=== PATIENT | female | born 1960 | race Caucasian/White ===

== ENCOUNTER → 2019-02-18 | Outpatient (CLI) | payer MEDICAID ==
--- NOTE | 2019-02-18 09:30 | Diagnostic Imaging Report ---
PROCEDURE: CT abdomen and pelvis without contrast. TECHNIQUE: Multiple contiguous axial images were obtained through the abdomen and pelvis without the use of intravenous contrast. Auto Exposure Controls were utilized during the CT exam to meet ALARA standards for radiation dose reduction. INDICATION: Left upper quadrant abdominal pain and early satiety. FINDINGS: Unenhanced images of the abdomen and pelvis reveal no focal hepatic or splenic abnormality. Gallbladder is surgically absent. Note is made of small amount of pericardial fluid and/or thickening. Stomach is nondistended. There is no evidence of pancreatic or adrenal gland lesion. Unenhanced images of the kidneys are also unremarkable without evidence of hydronephrosis. There is mild aortoiliac atherosclerotic calcification. No free fluid is seen within the abdomen or pelvis. Note is made of mesh in the anterior abdominal wall with mild protrusion of mesh and omentum at the level of the umbilicus. There is no evidence of bowel herniation. There is low-density in the terminal ileum which may be related to lipomatous change. The bladder is largely decompressed but otherwise unremarkable. There is mild diffuse lumbar spondylosis. IMPRESSION: No acute abnormality is identified. Note is made of mild pericardial fluid or thickening, mild abdominal aortic and visceral atherosclerotic calcification, mild spondylosis of the lumbar spine and mild protrusion of fat and anterior abdominal wall mesh at the level of the umbilicus. Dictated by: Dictated on workstation # [id number]
== END ==
LOC: RAD FS 08:48
PROVIDERS: ATTEND Nurse Practitioner
DX: I70.0 Atherosclerosis of aorta (principal); M47.896 Other spondylosis, lumbar region
CPT/HCPCS: 74176

== ENCOUNTER → 2019-07-14 | Outpatient (CLI) | payer MEDICAID ==
[~2019-07-14] MED LIST: CATHETER FLUSH 10 ML SYR IV PRN; HOLD METFORMIN - RECEIVED CONTRAST 20 ML VIAL IV SCH; IOHEXOL 350 MG/ML 150 ML (OMNIPAQUE 350) VIAL IV ONE; NS 100 ML (IVPB) BAG IV ONE
--- NOTE | 2019-07-14 09:40 | Diagnostic Imaging Report ---
PROCEDURE: CT angiography of the chest with contrast. TECHNIQUE: Multiple contiguous axial images were obtained through the chest after uneventful bolus administration of intravenous contrast. 3D reconstructed CTA MIP acquisitions were also performed. Auto Exposure Controls were utilized during the CT exam to meet ALARA standards for radiation dose reduction. All CT scans use one or more of the following dose optimizing techniques: automated exposure control, MA and/or KvP adjustment based on a patient size and exam type, or iterative reconstruction. INDICATION: Shortness of breath and elevated d-dimer. No prior studies are available for comparison. FINDINGS: The study is somewhat compromised by respiratory motion. No definite thromboemboli within the pulmonary arterial system are seen. No filling defects within central, lobar segmental branches are identified. The thoracic aorta is normal caliber. There is no dissection. Trace pericardial fluid is seen. No pleural effusion is identified. No infiltrates, nodules or masses are seen. No definite thoracic lymphadenopathy is identified. Upper abdomen is unremarkable. IMPRESSION: Compromised by motion. No definite pulmonary emboli are detected. Dictated by: Dictated on workstation # [id number]
== END ==
LOC: RAD FS 08:55
PROVIDERS: ATTEND Nurse Practitioner Family
DX: R06.02 Shortness of breath (principal); R79.1 Abnormal coagulation profile
CPT/HCPCS: 71275

== ENCOUNTER → 2020-08-23 | Outpatient (CLI) | payer MEDICAID ==
--- NOTE | 2020-08-23 13:13 | Diagnostic Imaging Report ---
INDICATION: Chronic pain in both knees. Time of exam 11:23 a.m. Three views of each knee were obtained. The left knee demonstrates medial and patellofemoral compartment degenerative change with joint space narrowing and marginal spurring. There is some spurring of the tibial spines. Lateral compartment is maintained. Articular surfaces are smooth. Right knee demonstrates severe medial compartmental degenerative changes with significant joint space narrowing and marginal spurring. There is some osteophyte formation of the lateral femoral condyle as well but the lateral compartment is maintained. There is patellofemoral joint degenerative change. No effusion is seen on either side. There is no fracture or dislocation. IMPRESSION: Bilateral bicompartmental degenerative change, as described. No acute bony abnormality is detected. Dictated by: Dictated on workstation # [id number]
== END ==
LOC: RAD FS 11:21
PROVIDERS: ATTEND Nurse Practitioner
DX: M17.11 Unilateral primary osteoarthritis, right knee (principal); M17.12 Unilateral primary osteoarthritis, left knee